=== PATIENT | male | born 1980 | race Hispanic/Latino ===

== ENCOUNTER 2022-06-15 13:06 | Emergency (ER) | payer OTHER, SELFPAY ==
[2022-06-15 13:09] VITALS: BP 129/92; PULSE 82; RESP 16; TEMP 36.6; O2SAT 100; BMI 28.9
--- NOTE | 2022-06-15 14:05 | EDS_ITS ---
HPI History of Present Illness Chief Complaint: Numb/Ting Narrative Narrative: Patient presents with left-sided facial droop including the forehead for 4 days, he also has upper airway congestion and left ear pain. No fevers or chills. He has sinus tenderness throughout. He has no cough or shortness of breath. PFSH PFSH Home Medications acyclovir 400 mg tablet 1 tab PO 5X/DAY #35 tabs 06/15/22 [Rx Last Taken Unknown] amoxicillin 500 mg tablet 500 mg PO TID #30 tabs 06/15/22 [Rx Last Taken Unknown] Allergy/AdvReac Type Severity Reaction Status Date / Time No Known Allergies Allergy Verified 06/15/22 13:13 ROS ROS ED ROS Narrative Past medical history: Reviewed Medications: Reviewed Social history: Noncontributory Review of systems: All systems negative except as indicated General: No fever Eyes: No visual changes ENT: As in HPI Neck: No neck pain Cardiovascular: No chest pain Respiratory: No shortness of breath or cough Gastrointestinal: No abdominal pain, nausea vomiting or diarrhea Genitourinary: No dysuria Musculoskeletal: Denies myalgias no difficulty with ambulation Skin: No rash Neurological: Left-sided facial droop no other neurological symptoms Psych: No recent behavioral changes Hematologic: No easy bleeding or easy bruising EXAM Physical Exam Narrative Exam Narrative: Physical exam General: Well nourished, Well developed, No Acute Distress Head: Normocephalic, Atraumatic Eyes: Conjunctiva not pale, no conjunctivitis. Pupils are equal and reactive ENT: Patient has bilateral TM erythema and some bulging. No mastoid tenderness. There is postnasal drip and rhinorrhea. Otherwise there is facial droop including the forehead, he can close his eye just not as tight as the right side. Neck: Supple, Nontender, No lymphadenopathy Cardiovascular: Regular rate, Regular rhythm Respiratory: No distress, CTA bilaterally Abdomen: Soft, Nontender, Nondistended Back: Nontender, Normal Inspection. Negative for: CVA tenderness Extremities: Nontender, No edema Skin: Normal color, No rash Neurological: Left-sided facial droop including the forehead, no sensory deficits no other motor deficits in my full examination. Psychological: Normal affect Const Vital Signs: 06/15/22 13:09 Temperature 97.8 F Temperature Source Temporal Pulse Rate 82 Respiratory Rate 16 Blood Pressure 129/92 H Blood Pressure Mean 104 Pulse Ox 100 Oxygen Delivery Method Room Air MDM MDM MDM Narrative Medical decision making narrative: Patient has sinusitis, bilateral otitis media with a subsequent Oreilly's palsy. I will treat him with both antibiotics and antivirals. Discharge Plan Triage Chief Complaint: Numb/Ting ED Provider: Moe Dahl Dx/Rx/DC Orders Clinical Impression: Sinusitis, Otitis media, Oreilly's palsy Instructions: Oreilly's Palsy, Infecci?n del o?do medio Prescriptions: New acyclovir 400 mg tablet 1 tab PO 5X/DAY Qty: 35 0RF amoxicillin 500 mg tablet 500 mg PO TID Qty: 30 0RF Primary Care Provider: NOT,DEFINED Referrals: Roseann Cunningham DO [Med Staff - [employer]ished [employer]] - NOT,DEFINED [Primary Care Provider] - Disposition Disposition: Home, Self Care
[2022-06-15] MEDS: Acyclovir 200 MG Capsule 400 MG PO (14:24)
[2022-06-15] MEDS: AMOXICILLIN 500 MG CAPSULE PO (14:25)
== END 2022-06-15 14:48 | disposition home or self-care (01) ==
PROVIDERS: Emergency Provider Emergency Medicine; PCP Internal Medicine; Visit Provider Emergency Medicine
DX: G51.0 Bell's palsy (principal); H66.93 Otitis media, unspecified, bilateral; J32.9 Chronic sinusitis, unspecified
CPT/HCPCS: 99281; 99283